=== PATIENT | female | born 1965 | race African-American/Black ===

== ENCOUNTER 2016-04-25 14:25 | Emergency (ER) | payer OTHER ==
[~2016-04-25] VITALS: Ht 157.5 cm; Wt 95.3 kg
[~2016-04-25 14:25] MED LIST: CLIN-44 PO
[2016-04-25 14:49] VITALS: BP 157/73
--- NOTE | 2016-04-25 15:33 | PHYS DOC ---
Past Medical History Past Medical History: Hypertension Past Surgical History: , Other Additional Past Surgical Histo: neck, left lumpectomy Smoking: Less than 1pk/day Alcohol Use: Rarely Drug Use: None Adult General Chief Complaint Chief Complaint: LOWER EXT PAIN HPI HPI Patient is a 50 year old female who presents with left knee pain after falling through a hole in a deck 1 month ago. She did not fall completely through the deck to the ground. Her leg went through the hole to the level of the knee. She has been ambulatory since the injury. She has taken ibuprofen at home for pain without relief. Review of Systems Review of Systems Constitutional: Denies fever or chills. [] Musculoskeletal: Denies back pain. Reports left knee pain. Integument: Denies rash or skin lesions. Reports left knee ecchymosis. Neurologic: Denies headache, focal weakness or sensory changes. [] Allergies Allergies Allergies Coded Allergies Type Severity Reaction Last Updated Verified codeine Allergy Intermediate 09/29/15 Yes Physical Exam Physical Exam Constitutional: Well developed, well nourished, no acute distress, non-toxic appearance. [] HENT: Normocephalic, atraumatic, oropharynx moist. [] Eyes: PERRLA, EOMI, conjunctiva normal, no discharge. [] Skin: Warm, dry, no erythema, no rash. There is a hematoma just distal to the left knee on the medial side. Extremities: Left medial knee tenderness without patellar tenderness, ROM intact , minimal edema. 2+ pedal pulses. Less than 2 second capillary refill in the toes. Light touch sensation intact distally. Neurologic: Alert and oriented X 3, normal motor function, normal sensory function, no focal deficits noted. [] Psychologic: Affect normal, judgement normal, mood normal. [] Current Patient Data Vital Signs Vital Signs Date Time Temp Pulse Resp B/P Pulse Ox O2 Delivery O2 Flow Rate FiO2 04/25/16 14:49 98.0 67 16 96 Room Air 98.0 EKG EKG [] Radiology/Procedures Radiology/Procedures REASON: fall through hole in deck 1 month ago PROCEDURE: KNEE LEFT 3V Indication: Fall through deck 1 month ago, twisting injury. Technique: 3 views of the left knee are submitted for review. No comparison is available. Findings: There is no fracture or dislocation. There is minimal medial and patellofemoral compartment spurring. There is no joint space narrowing. There is no joint effusion. Impression: Mild osteoarthritis in the medial and patellofemoral compartments. Course & Med Decision Making Course & Med Decision Making Pertinent Labs and Imaging studies reviewed. (See chart for details) The patient was discharged home with an Luis Fernando wrap. She is given a prescription for Ultram. She is given contact information for orthopedics for follow-up. Return precautions were discussed per chief verbalizes understanding and agrees with plan. Dragon Disclaimer Dragon Disclaimer This electronic medical record was generated, in whole or in part, using a voice recognition dictation system. Departure Departure Impression: Primary Impression: Knee pain, left Disposition: HOME, SELF-CARE Condition: STABLE Referrals: MARTHA ROMERO MD Patient Instructions: Knee Pain, [id number], RICE - Routine Care for Injuries , [id number] Additional Instructions: Your xray did not show any broken bones or dislocations. Please wear the provided Luis Fernando wrap to help with swelling and pain. Please take the prescribed pain medication as directed. Do not drive or operate heavy machinery while taking pain medication. Please follow up with the orthopedic doctor listed below if your pain continues. Return to the emergency department if you have any new or concerning symptoms. Scripts Tramadol Hcl (Ultram)50 Mg [id number] Mg PO Q6H PRN PAIN #20 TAB Prov:FIONA JACINTO 04/25/16 Problem Qualifiers Primary Impression: Knee pain, left Chronicity: unspecified Qualified Code: M25.562 - Pain in left knee FIONA JACINTO Apr 25, 2016 15:32
--- NOTE | 2016-04-25 15:44 | RAD ---
Indication: Fall through deck 1 month ago, twisting injury. Technique: 3 views of the left knee are submitted for review. No comparison is available. Findings: There is no fracture or dislocation. There is minimal medial and patellofemoral compartment spurring. There is no joint space narrowing. There is no joint effusion. Impression: Mild osteoarthritis in the medial and patellofemoral compartments.
[2016-04-25] MEDS ORDERED: TRAM-29 PO (16:09)
== END 2016-04-25 16:21 | disposition home or self-care (01) ==
LOC: ER 14:25
DX: M25.562 Pain in left knee (principal); I10 Essential (primary) hypertension; F17.210 Nicotine dependence, cigarettes, uncomplicated; Z88.5 Allergy status to narcotic agent
CPT/HCPCS: 73562; 99284

== ENCOUNTER → 2016-09-02 | Outpatient (CLI) | payer OTHER ==
[~2016-09-02] MED LIST changes: -CLIN-44 PO; +CLIN150C14 PO; +TRAM-48 PO
--- NOTE | 2016-09-02 16:15 | RAD ---
INDICATION: Pelvic pain/tenderness COMPARISON: None. TECHNIQUE: Grayscale and color ultrasound images uterus and adnexa. Transabdominal and transvaginal images obtained. FINDINGS: Uterus: 12.3 x 5.8 x 5.7 cm. Endometrial Stripe: 6 mm. The right ovary is not seen. There is a large complex cystic structure within the left adnexa with some color flow within the septations. This measures approximately 86 x 49 x 43 mm. IMPRESSION: 1. Complex cystic mass within the left adnexa with vascular flow seen to the septations. There is also free fluid identified. Differential considerations include a cystic neoplasm of the left ovary such as cystadenoma or cystadenocarcinoma although a complex fluid collection is also within the differential. Given the size of this lesion further workup is warranted. This could include [employer] evaluation or pelvic MRI with and without contrast.
--- NOTE | 2016-09-05 14:03 | RAD ---
DATE: 09/02/2016 EXAM: DIGITAL SCREEN BILAT W/CAD HISTORY: Routine screening COMPARISON: None available This study was interpreted with the benefit of Computerized Aided Detection (CAD). The breast parenchyma is heterogeneously dense, which could reduce sensitivity of mammography. Breast parenchyma level C. FINDINGS: The breast tissues are heterogeneously dense in a somewhat nodular pattern. There are multiple benign-appearing lymph node type densities projected over the axillary regions bilaterally. A smooth oval-shaped nodule with a hilar lucency projected over the posterolateral aspect of left breast is most compatible with a benign intramammary lymph node. No other unusual breast densities are seen. Benign type calcifications are present on the right. No suspicious microcalcifications are evident. IMPRESSION: There is no mammographic evidence of malignancy in either breast. BI-RADS CATEGORY: 2 BENIGN FINDING(S) RECOMMENDED FOLLOW-UP: 12M 12 MONTH FOLLOW-UP PQRS compliance statement: Patient information was entered into a reminder system with a target due date for the next mammogram. Mammography is a sensitive method for finding small breast cancers, but it does not detect them all and is not a substitute for careful clinical examination. A negative mammogram does not negate a clinically suspicious finding and should not result in delay in biopsying a clinically suspicious abnormality. "Our facility is accredited by the [employer] Mammography Program."
== END | disposition home or self-care (01) ==
LOC: US 08:00
PROVIDERS: ATTEND Nurse Practitioner Family
DX: Z12.31 Encounter for screening mammogram for malignant neoplasm of breast (principal); R10.2 Pelvic and perineal pain
CPT/HCPCS: 76830; 76856; G0202; 77067

== ENCOUNTER 2016-09-22 14:33 | Emergency (ER) | payer OTHER ==
[~2016-09-22] VITALS: Ht 157.5 cm; Wt 95.3 kg
[2016-09-22 15:00] VITALS: BP 156/88
[2016-09-22] MEDS ORDERED: ONDANSETRON ODT 4 MG TAB.RAPDIS. PO ONE (16:15)
--- NOTE | 2016-09-22 16:21 | PHYS DOC ---
Past Medical History Past Medical History: Hypertension Past Surgical History: , Other Additional Past Surgical Histo: neck, left lumpectomy Alcohol Use: Rarely Drug Use: None Adult General Chief Complaint Chief Complaint: FEVER HPI HPI Patient is a 50 year old female presents to emergency department stating that she's been having vomiting and diarrhea for the last week. Patient states that she vomited 3 times today with no blood in the emesis. She'll states she had 3 diarrhea stools with no blood in the stools. She states that it was mainly liquid. Patient states that she is also been having some vaginal discharge. She states that she was treated for Trichomonas last week and she does not think that that was effective. Patient states that she still is sexually active. She denies being sexually active with the partner prior to the positive Trichomonas. Patient also states she's been running a fever. Her temperature here in the emergency department was 99.3. Review of Systems Review of Systems Constitutional: Subjective fever Eyes: Denies change in visual acuity, redness, or eye pain [] HENT: Denies nasal congestion or sore throat [] Respiratory: Denies cough or shortness of breath [] Cardiovascular: No additional information not addressed in HPI [] GI: Denies abdominal pain, complain nausea, vomiting and diarrhea. : Denies dysuria or hematuria [] Musculoskeletal: Denies back pain or joint pain [] Integument: Denies rash or skin lesions [] Neurologic: Denies headache, focal weakness or sensory changes [] Endocrine: Denies polyuria or polydipsia [] Current Medications Current Medications Current Medications Medications (Trade) Dose Ordered Sig/[facility] Start Time Stop Time Status Last Admin Dose Admin Ondansetron HCl (Zofran Odt) 4 mg 1X ONCE 09/22/16 16:15 09/22/16 16:16 DC 09/22/16 16:14 4 MG Allergies Allergies Allergies Coded Allergies Type Severity Reaction Last Updated Verified codeine Allergy Intermediate 09/29/15 Yes Physical Exam Physical Exam Constitutional: Well developed, well nourished, no acute distress, non-toxic appearance. [] HENT: Normocephalic, atraumatic, bilateral external ears normal, oropharynx moist, no oral exudates, nose normal. [] Eyes: PERRLA, EOMI, conjunctiva normal, no discharge. [] Neck: Normal range of motion, no tenderness, supple, no stridor. [] Cardiovascular:Heart rate regular rhythm, no murmur [] Lungs & Thorax: Bilateral breath sounds clear to auscultation [] Abdomen: Bowel sounds hypoactive, soft, no tenderness, no masses, no pulsatile masses. [] Skin: Warm, dry, no erythema, no rash. [] Back: No tenderness Extremities: No tenderness, no cyanosis, no clubbing, ROM intact, no edema. [] Neurologic: Alert and oriented X 3, normal motor function, normal sensory function, no focal deficits noted. [] Psychologic: Affect normal, judgement normal, mood normal. [] Vaginal exam completed with WILDA Fallon at bedside. Speculum exam with patient noted to have white to cover vaginal discharge. Patient states she had finished her menstrual cycle on Monday. Manual exam with no CMT noted, no adnexal tenderness noted. Current Patient Data Vital Signs Vital Signs Date Time Temp Pulse Resp B/P (MAP) Pulse Ox O2 Delivery O2 Flow Rate FiO2 09/22/16 15:00 99.1 78 18 98 Room Air 99.1 Lab Values Laboratory Tests Test 09/22/16 16:30 Urine Color Yellow Urine Clarity Clear Urine pH 6.0 Urine Specific [place] >=1.030 Urine Protein 100 mg/dL (NEG-TRACE) Urine Glucose (UA) Negative mg/dL (NEG) Urine Ketones (Stick) Negative mg/dL (NEG) Urine Blood Negative (NEG) Urine Nitrite Negative (NEG) Urine Bilirubin Negative (NEG) Urine Urobilinogen Dipstick 1.0 mg/dL (0.2 mg/dL) Urine Leukocyte Esterase Negative (NEG) Urine RBC 0 /HPF (0-2) Urine WBC Occ /HPF (0-4) Urine Squamous Epithelial Cells Occ /LPF Urine Bacteria 0 /HPF (0-FEW) Urine Mucus Mod /LPF Microbiology 09/22/16 Wet Prep - Final, Complete EKG EKG [] Radiology/Procedures Radiology/Procedures [] Course & Med Decision Making Course & Med Decision Making Pertinent Labs and Imaging studies reviewed. (See chart for details) Wet prep was positive for bacterial vaginosis, urinalysis was negative. Patient had been provided with Zofran here in the emergency department as she stated that she was nauseated. Patient with no nausea or vomiting, or diarrhea here in the emergency department. Patient will be discharged home with recommendations for Zofran as needed for nausea vomiting. Recommended Imodium [id number] for diarrhea. Provided patient with information she needs to drink plenty of fluids to stay hydrated. Patient agrees with discharge instructions treatment regimens and follow-up recommendations. Signs and symptoms to return back to emergency department been provided. Patient will be discharged home with recommendations to follow-up with primary care physician in the next 3-5 days. Patient's questions were all answered at the bedside. [] Dragon Disclaimer Dragon Disclaimer This electronic medical record was generated, in whole or in part, using a voice recognition dictation system. Departure Departure Impression: Primary Impression: Bacterial vaginosis Additional Impression: Vomiting and diarrhea Disposition: HOME, SELF-CARE Condition: STABLE Referrals: UNKNOWN PCP NAME (PCP) Patient Instructions: Bacterial Vaginosis, [id number], Diarrhea, [id number] , Diet for Diarrhea, Adult, Nausea and Vomiting, [id number] Additional Instructions: Activity as tolerated. Clear liquid diet for the next 24 hours. Drink plenty of fluids to help keep herself hydrated. Avoid caffeine or carbonated beverages. Medication as prescribed. Follow-up to primary care physician in the next 5-7 days. Return back to emergency prior signs and symptoms of become worse. Scripts Ondansetron (ZOFRAN ODT) 4 Mg Tab.rapdis 1 TAB SL Q8HRS, #10 TAB Prov: ASHLIE JERNIGAN APRN 09/22/16 Metronidazole (FLAGYL) 500 Mg Tablet 1 TAB PO BID, #14 TAB Prov: ASHLIE JERNIGAN APRN 09/22/16 Problem Qualifiers ASHLIE JERNIGAN APRN Sep 22, 2016 16:21
[2016-09-22 16:46] LABS: BILIRUBIN,URINE NEGATIVE (NEG); GLUCOSE,URINE NEGATIVE (NEG); NITRITE,URINE NEGATIVE (NEG); PROTEIN,URINE 100 mg/dL (NEG-TRACE)
[2016-09-22 16:55] LABS: BACTERIA,URINE 0 /HPF (0-FEW); RBC,URINE 0 /HPF (0-2); SQUAMOUS EPITHELIAL CELL,UR OCC /LPF; WBC,URINE OCC /HPF (0-4)
[2016-09-22] MEDS ORDERED: ONDA4TAB10 SL (17:01)
[2016-09-22] MEDS ORDERED: METR500T PO (17:01)
== END 2016-09-22 17:15 | disposition home or self-care (01) ==
LOC: ER 14:33
DX: N76.0 Acute vaginitis (principal); R11.2 Nausea with vomiting, unspecified; R19.7 Diarrhea, unspecified; I10 Essential (primary) hypertension; Z88.5 Allergy status to narcotic agent; Z98.890 Other specified postprocedural states
CPT/HCPCS: 81001; 87491; 87591; 99284; Q0111; Q0162

== ENCOUNTER → 2016-10-11 | Outpatient (CLI) | payer OTHER ==
[2016-09-22 15:00] VITALS: BP 156/88
[~2016-10-11] MED LIST changes: +METR500T PO; +ONDA4TAB10 SL
--- NOTE | 2016-10-11 14:30 | RAD ---
Exam performed: Pelvic ultrasound. History: Excessive menstruation. Date of service: 10/11/16. Comparison: None available Technique: Transabdominal and transvaginal. Findings: The uterus measures 14.0 x 6.4 x 5.6 cm. The endometrial stripe measures 6.8 mm. No focal lesions are seen. Neither of the 2 ovaries are well seen. There is a septated cystic structure in the left adnexa with flow within the septations. This measures to the order of approximately 7 cm. In addition there is also a cystic septated structure in the right adnexa measuring approximately 8 cm which is seen only via transabdominal scanning. No free fluid. Impression: Normal uterus. Cystic septated structures in both adnexa without definite visualization of the ovaries. Diagnostic considerations would include Hydrosalpinx or ovarian cysts. Short-term interval follow-up ultrasound in approximately 8-12 weeks may be of additional benefit to follow these abnormalities. These persist, consider evaluation with MRI pelvis with contrast
== END | disposition home or self-care (01) ==
LOC: US 09:33
PROVIDERS: ATTEND Obstetrics & Gynecology
DX: N92.0 Excessive and frequent menstruation with regular cycle (principal); N94.6 Dysmenorrhea, unspecified; D25.9 Leiomyoma of uterus, unspecified
CPT/HCPCS: 76830; 76856

== ENCOUNTER → 2016-11-25 | Outpatient (CLI) | payer OTHER ==
[~2016-11-25] MED LIST changes: +HYDR12.58 PO
[2016-11-25 13:49] LABS: BASO # 0.1 x10^3/uL (0.0-0.2); BASO % 1 % (0-3); EOS % 2 % (0-3); HEMATOCRIT 36.1 % (36.0-47.0); HEMOGLOBIN 12.3 g/dL (12.0-15.5); LYMPH # 2.6 x10^3/uL (1.0-4.8); LYMPH % 34 % (24-48); MEAN CORPUSCULAR HEMOGLOBIN 32 pg (25-35); MEAN CORPUSCULAR HGB CONC 34 g/dL (31-37); MEAN CORPUSCULAR VOLUME 93 fL (79-100); MONO % 7 % (0-9); NEUT % 56 % (31-73); PLATELET COUNT 329 x10^3/uL (140-400); RED BLOOD COUNT 3.89 x10^6/uL (3.50-5.40); WHITE BLOOD COUNT 7.6 x10^3/uL (4.0-11.0)
== END | disposition home or self-care (01) ==
LOC: SURGPAT 13:13
PROVIDERS: ATTEND Obstetrics & Gynecology
DX: Z01.818 Encounter for other preprocedural examination (principal); Z90.710 Acquired absence of both cervix and uterus
CPT/HCPCS: 36415; 85025

== ENCOUNTER 2016-12-01 06:33 | Inpatient (IN) | payer OTHER ==
[~2016-12-01] VITALS: Ht 157.5 cm; Wt 97.5 kg
[~2016-12-01 06:33] MED LIST changes: +SURGICEL HEMOSTAT 2X3 EACH. ONE; +ceFAZolin SODIUM 3 GM in IV DEXTROSE 5% 100 ML IV PRN
[2016-12-01 06:58] LABS: NEG OBC UR NEG; POS OBC UR POS
[2016-12-01] MEDS ORDERED: IV RINGERS,LACTATED 1000ML 1,000 ML IV SCH (07:00)
[2016-12-01] MEDS ORDERED: HYDROmorphone 2 MG/ML VIAL IV PRN (07:00)
[2016-12-01] MEDS ORDERED: PROCHLORPERAZINE 10 MG/2 ML VIAL. IV PRN ×3 (07:00→15:00)
[2016-12-01] MEDS ORDERED: MORPHINE SULFATE 2 MG/ML DISP.SYRIN. IV PRN (07:00)
[2016-12-01] MEDS ORDERED: fentaNYL PF VIAL 100 MCG/2 ML VIAL IV PRN ×2 (07:00)
[2016-12-01] MEDS ORDERED: LIDOCAINE 1% PF 2 ML VIAL. ID PRN (07:00)
[2016-12-01] MEDS ORDERED: ONDANSETRON PF 4 MG/2 ML VIAL. IV PRN ×3 (07:00→15:00)
[2016-12-01] MEDS ORDERED: DESFLURANE 61 TO 120 MINUTES IH ONE ×2 (07:25→13:31)
[2016-12-01] MEDS ORDERED: KETOROLAC 30 MG/ML INJ FOR OR. INJ ONE (07:26)
[2016-12-01] MEDS ORDERED: ROCURONIUM 100 MG/10 ML VIAL. ONE ×2 (07:26→13:32)
[2016-12-01] MEDS ORDERED: LIDOCAINE 2% PF Vial for OR 5 ML VIAL. ONE ×2 (07:26→13:32)
[2016-12-01] MEDS ORDERED: GLYCOPYRROLATE 1 MG/5 ML VIAL. ONE ×2 (07:26→13:33)
[2016-12-01] MEDS ORDERED: NEOSTIGMINE METHYLSULFATE 5 MG/5 ML SYRINGE. ONE ×2 (07:26→13:33)
[2016-12-01] MEDS ORDERED: DEXAMETHASONE SOD PHOS 20 MG/5 ML VIAL. ONE ×2 (07:26→13:32)
[2016-12-01] MEDS ORDERED: PROPOFOL 20 ML IV ONE ×2 (07:26→13:32)
[2016-12-01] MEDS ORDERED: ONDANSETRON PF 4 MG/2 ML VIAL. ONE ×2 (07:26→13:32)
[2016-12-01] MEDS ORDERED: fentaNYL PF VIAL 100 MCG/2 ML VIAL ONE ×4 (07:26→13:32)
[2016-12-01] MEDS ORDERED: MIDAZOLAM HCL/PF 2 MG/2 ML VIAL. ONE (07:26)
[2016-12-01] MEDS ORDERED: PHENYLEPHRINE in 0.9% NACL PF 1 MG/10 ML DISP.SYRIN. IV ONE ×2 (08:32→14:39)
--- NOTE | 2016-12-01 09:51 | PDOC ---
BRIEF OPERATIVE NOTE Pre-Op Diagnosis 1. AUB 2. Fibroids Post-Op Diagnosis SAme + Bilateral Hydrosalpinx Procedure Performed ADONIS & BSO Surgeon Dr. Alexandria Fallon Anesthesia Type: General Blood Loss 500 ml Specimens Obtained uterus, cervix, eleanor fallopian tubes and ovaries Findings enlarged uterus with eleanor. hydrosalpinx and abd wall/pelvic sidewall adhesions Complications none ELIZA CHAND Jr, MD Dec 01, 2016 09:51
[2016-12-01] MEDS ORDERED: SIMETHICONE 80 MG TAB.CHEW PO PRN ×2 (10:00→15:00)
[2016-12-01] MEDS ORDERED: CALCIUM CARBONATE 500 MG TAB.CHEW PO PRN ×2 (10:00→15:00)
[2016-12-01] MEDS ORDERED: 0.9 % SODIUM CHLORIDE 10 ML DISP.SYRIN. IV PRN ×2 (10:00→15:00)
[2016-12-01] MEDS ORDERED: diphenhydrAMINE HCL 25 MG CAPSULE PO PRN ×2 (10:00→15:00)
[2016-12-01] MEDS ORDERED: DEXTROSE 50% 25 GM / 50ML DISP.SYRIN. IV PRN ×2 (10:00→15:00)
[2016-12-01] MEDS ORDERED: ZOLPIDEM 5 MG TABLET. PO PRN ×2 (10:00→15:00)
[2016-12-01] MEDS ORDERED: diphenhydrAMINE 50 MG/ML VIAL IV PRN ×2 (10:00→15:00)
--- NOTE | 2016-12-01 10:20 | OP ---
DATE OF SURGERY: PREOPERATIVE DIAGNOSES: 1. Abnormal uterine bleeding. 2. Fibroids. POSTOPERATIVE DIAGNOSES: 1. Abnormal uterine bleeding. 2. Fibroids. 3. Bilateral hydrosalpinx. PROCEDURE: TAHBSO. SURGEON: Eliza Ibrahim MD OCEAN EXPORT AGENT: Leeanne. ANESTHESIA: GETA. ESTIMATED BLOOD LOSS: 500 mL. COMPLICATIONS: None. FINDINGS: Enlarged uterus, bilateral hydrosalpinx, abdominal wall and pelvic sidewall adhesions. SUMMARY: A 50-year-old female with abnormal uterine bleeding, fibroid by pelvic sonogram, required hysterectomy. The patient was counseled on risks, benefits and expectations of TAHBSO and voiced clear understanding to proceed. DESCRIPTION OF PROCEDURE: The patient was taken to surgery suite and placed in dorsal lithotomy position. She was then placed in dorsal supine position, in which she was prepped with ChloraPrep and draped in sterile fashion. After adequate anesthesia, a Pfannenstiel skin incision was made with scalpel down to and through the fascia. Fascia was extended laterally using Bovie cautery. The superior edge of the fascia was grasped with two Ugo clamps and dissected free of the abdominal rectus muscles using blunt dissection along with Bovie cautery. The same process took place inferiorly. Peritoneum was grasped with 2 hemostats, entered sharply with Metzenbaum scissors. This incision was extended superiorly as well as inferiorly. The uterus was palpated, enlarged. There were bilateral hydrosalpinx, each measuring about 8 cm in size. The multiple abdominal wall and pelvic sidewall adhesions were then dissected with Metzenbaum scissors. After careful dissection, the left hydrosalpinx was decompressed using 60 mL syringe with spinal needle. The left round ligament was grasped and suture ligated with 2-0 Vicryl suture on the proximal and distal end. The mid section of the round ligament was dissected with the Bovie cautery. The same process took place in the right round ligament. The right hydrosalpinx was then partially drained, and the right infundibulopelvic ligament was isolated, clamped with two curved Renata clamps, cut and suture tied with 2-0 Vicryl suture. The right utero-ovarian pedicle was then clamped, cut, suture tied. The right utero-ovarian pedicle was removed, which included the ovary and fallopian tube. Same process took place with left adnexa. The cardinal ligaments and uterine artery were clamped bilaterally, cut, and suture ligated. Two curved Renata clamps were then placed just adjacent to the cervix, which those pedicles were cut and suture ligated with 0 Vicryl suture, which was at the level of the parametrial tissue. Two curved Renata clamps were used to place just adjacent to the cervix in which the Cristine scissors were utilized to help excise the cervix from the vaginal cuff. The cervix and uterus were then removed. The vaginal cuff was reapproximated using 2-0 Vicryl suture in a iliaoi-gw-lzguy manner. Warm irrigation was utilized to verify good hemostasis. The ureters were palpated bilaterally and seen functioning properly. The Jun ring retractor and bowel packing were then removed. The peritoneum was reapproximated using 1-0 Vicryl suture in a running fashion. The fascia was reapproximated using 0 Vicryl suture in a running fashion. Skin was reapproximated using 4-0 Vicryl suture in subcuticular manner. Prevena wound VAC was then placed. The patient tolerated the procedure well and was taken to recovery room in stable condition. Sponge and needle count correct x 2. ELIZA IBRAHIM MD DR: LUDIVINA/cam JOB#: [id number] / [id number]
[2016-12-01] MEDS: GABAPENTIN 300 MG CAPSULE. PO SCH ×2 (14:00→21:36)
--- NOTE | 2016-12-01 14:59 | PDOC ---
BRIEF OPERATIVE NOTE Pre-Op Diagnosis Hematuria s/p ADONIS & BSO Post-Op Diagnosis SAme Procedure Performed Dx Cystoscopy Surgeon Dr. Ibrahim Anesthesia Type: General Blood Loss none Specimens Obtained none Findings superficial abrasion of bladder trigone. UVJ functioning normally. No evidence of cystotomy or injury from surgery. Small portion of cervix on vaginal exam present. Complications none ELIZA IBRAHIM Jr, MD Dec 01, 2016 14:59
[2016-12-01] MEDS ORDERED: oxyCODONE/APAP 5/325 1 TAB TABLET PO PRN (15:00)
[2016-12-01] MEDS ORDERED: KETOROLAC 30 MG/ML INJ. IV PRN (15:00)
--- NOTE | 2016-12-01 15:12 | OP ---
DATE OF SURGERY: PREOPERATIVE DIAGNOSES: Hematuria, status post total abdominal hysterectomy bilateral salpingo-oophorectomy. POSTOPERATIVE DIAGNOSES: Hematuria, status post total abdominal hysterectomy bilateral salpingo-oophorectomy. PROCEDURE: Diagnostic cystoscopy. SURGEON: Eliza Chand MD. ANESTHESIA: GETA. ESTIMATED BLOOD LOSS: None. FINDINGS: Superficial abrasion of the bladder trigone, most likely from the Moctezuma catheter placement. UVJ functioning normally. No evidence of cystotomy or injury from previous surgery. Small portion of the cervix on vaginal exam was present. COMPLICATIONS: None. SUMMARY: A 50-year-old who had hematuria status post TAHBSO. Today, she continued to have jason hematuria; therefore, she was counseled on operative cystoscopy for possible bladder injury repair and possible open laparotomy. She was counseled on the risks, benefits and expectations and voiced a clear understanding to proceed. DESCRIPTION OF PROCEDURE: The patient was taken to surgery suite and placed in dorsal lithotomy position. She was prepped with Betadine solution and draped in sterile fashion. Cystoscopy was performed which revealed a normal bladder intraepithelium with the exception of a superficial abrasion near the bladder trigone. There was no evidence of cystotomy. The ureterovesical junction is functioning normally bilaterally. Cystoscopy was performed with 30 degree as well a 70-degree scope. The cystoscope was then removed. There was evidence of a small portion of the cervix that was present. Therefore, previous surgery was supracervical hysterectomy that was mostly performed due to some adhesions from pelvic sidewall and the vaginal cuff area. The patient tolerated the procedure well and was taken to recovery room in stable condition. Sponge and needle count correct x 3. ELIZA CHAND MD DR: LUDIVINA/cam JOB#: [id number] / [id number]
[2016-12-01 16:18] VITALS: BP 124/69
[2016-12-01 16:34] VITALS: BP 123/68
[2016-12-01 17:25] VITALS: BP 124/66
[2016-12-01 17:41] VITALS: BP 120/62
[2016-12-01] MEDS: KETOROLAC 30 MG/ML INJ. IV PRN (19:32)
[2016-12-01 20:00] VITALS: BP 140/82
[2016-12-01] MEDS: oxyCODONE/APAP 5/325 1 TAB TABLET PO PRN (21:35)
[2016-12-01] MEDS ORDERED: GABAPENTIN 300 MG CAPSULE. PO SCH (22:00)
[2016-12-02 01:14] VITALS: BP 114/47
[2016-12-02 05:00] VITALS: BP 105/56
[2016-12-02] MEDS: GABAPENTIN 300 MG CAPSULE. PO SCH ×3 (05:17→20:49)
[2016-12-02] MEDS: KETOROLAC 30 MG/ML INJ. IV PRN (05:17)
[2016-12-02] MEDS: oxyCODONE/APAP 5/325 1 TAB TABLET PO PRN ×4 (05:18→20:49)
[2016-12-02 06:03] LABS: BASO % 0 % (0-3); EOS % 0 % (0-3); HEMATOCRIT 30.6 % (36.0-47.0); HEMOGLOBIN 10.4 g/dL (12.0-15.5); LYMPH # 2.1 x10^3/uL (1.0-4.8); LYMPH % 24 % (24-48); MEAN CORPUSCULAR HEMOGLOBIN 32 pg (25-35); MEAN CORPUSCULAR HGB CONC 34 g/dL (31-37); MEAN CORPUSCULAR VOLUME 94 fL (79-100); MONO % 9 % (0-9); NEUT % 66 % (31-73); PLATELET COUNT 255 x10^3/uL (140-400); RED BLOOD COUNT 3.27 x10^6/uL (3.50-5.40); RED CELL DISTRIBUTION WIDTH 13.8 % (11.5-14.5)
[2016-12-02 10:47] VITALS: BP 113/60
--- NOTE | 2016-12-02 14:01 | PDOC ---
SURGICAL PROGRESS NOTE Subjective Pt. feeling well. Pain controlled. Daniels cath clear urine now. Pt. tolerating regular diet. Vital Signs Vital Signs Date Time Temp Pulse Resp B/P (MAP) Pulse Ox O2 Delivery O2 Flow Rate FiO2 12/02/16 10:47 98.3 84 18 113/60 (77) 98.3 12/02/16 05:18 97 12/02/16 05:00 Room Air 12/01/16 15:50 2 I&O Intake and Output 12/03/16 07:00 Intake Total 560 ml Output Total 900 ml Balance -340 ml Intake Oral 560 ml Output Urine Total 900 ml PATIENT HAS A DANIELS: Yes General: Alert, Oriented X3, Cooperative HEENT: Atraumatic Lungs: Clear to auscultation Heart: Regular rate Abdomen: Normal bowel sounds, Soft, Other (Wound vac in place) Psych/Mental Status: Mental status NL Labs Laboratory Tests Test 12/01/16 06:45 12/02/16 05:20 Urine Test Negative (NEG) White Blood Count 9.0 x10^3/uL (4.0-11.0) Red Blood Count 3.27 x10^6/uL (3.50-5.40) Hemoglobin 10.4 g/dL (12.0-15.5) Hematocrit 30.6 % (36.0-47.0) Mean Corpuscular Volume 94 fL (79-100) Mean Corpuscular Hemoglobin 32 pg (25-35) Mean Corpuscular Hemoglobin Concent 34 g/dL (31-37) Red Cell Distribution Width 13.8 % (11.5-14.5) Platelet Count 255 x10^3/uL (140-400) Neutrophils (%) (Auto) 66 % (31-73) Lymphocytes (%) (Auto) 24 % (24-48) Monocytes (%) (Auto) 9 % (0-9) Eosinophils (%) (Auto) 0 % (0-3) Basophils (%) (Auto) 0 % (0-3) Neutrophils # (Auto) 5.9 x10^3uL (1.8-7.7) Lymphocytes # (Auto) 2.1 x10^3/uL (1.0-4.8) Monocytes # (Auto) 0.8 x10^3/uL (0.0-1.1) Eosinophils # (Auto) 0.0 x10^3/uL (0.0-0.7) Basophils # (Auto) 0.0 x10^3/uL (0.0-0.2) Laboratory Tests Test 12/02/16 05:20 White Blood Count 9.0 x10^3/uL (4.0-11.0) Red Blood Count 3.27 x10^6/uL (3.50-5.40) Hemoglobin 10.4 g/dL (12.0-15.5) Hematocrit 30.6 % (36.0-47.0) Mean Corpuscular Volume 94 fL (79-100) Mean Corpuscular Hemoglobin 32 pg (25-35) Mean Corpuscular Hemoglobin Concent 34 g/dL (31-37) Red Cell Distribution Width 13.8 % (11.5-14.5) Platelet Count 255 x10^3/uL (140-400) Neutrophils (%) (Auto) 66 % (31-73) Lymphocytes (%) (Auto) 24 % (24-48) Monocytes (%) (Auto) 9 % (0-9) Eosinophils (%) (Auto) 0 % (0-3) Basophils (%) (Auto) 0 % (0-3) Neutrophils # (Auto) 5.9 x10^3uL (1.8-7.7) Lymphocytes # (Auto) 2.1 x10^3/uL (1.0-4.8) Monocytes # (Auto) 0.8 x10^3/uL (0.0-1.1) Eosinophils # (Auto) 0.0 x10^3/uL (0.0-0.7) Basophils # (Auto) 0.0 x10^3/uL (0.0-0.2) Assessment/Plan A: POD#1 s/p ADONIS & BSO Cystoscopy P: Cont. post op care. D/c sabas. Problems: ELIZA CHAND Jr, MD Dec 02, 2016 14:01
[2016-12-02 15:37] VITALS: BP 121/66
--- NOTE | 2016-12-02 16:57 | PATHOLOGY ---
PATHOLOGY REPORT * * * * * * * * FINAL DIAGNOSIS: Uterus and detached bilateral fallopian tubes and ovaries, total abdominal hysterectomy with bilateral salpingo-oophorectomy: - Leiomyomas, uterine corpus, intramural and submucosal, multiple, the largest of which is a polypoid submucosal myoma measuring 2.2 cm in greatest dimension. - Mild chronic cervicitis with focal squamous metaplasia. - Early secretory endometrium. - Adenomyosis, uterine corpus, focal. - Uterine serosal adhesions. - Paratubal cysts, side indeterminate. - Mild hydrosalpinx, side indeterminate. - Ovarian capsular adhesions, bilateral. - Hemorrhagic corpus luteum cyst, side indeterminate. COMMENT: There is no evidence of malignancy. (JPM:[email or web address]; 12/02/2016) REPORT ELECTRONICALLY SIGNED BY: Angelito Palmer M.D. DATE/TIME: 12/02/2016 16:57 * * * * * * * * GROSS PATHOLOGY: The specimen is received in formalin labeled "Anahi Lerner, uterus, cervix, bilateral fallopian tubes and ovaries". Received is a 159 g, 11.5 x 5.8 x 5.8 cm uterus with attached cervix. Separately received in the same container are bilateral fallopian tubes and ovaries. The uterine serosa is purple-beth and focally covered by adhesions. The slitlike 0.7 cm cervical os is surrounded and rimmed by pink-beth ectocervical mucosa. The uterus is oriented using the peritoneal reflection. The uterus is bivalved to reveal a pink-beth herringbone endocervical canal measuring 4.5 cm in length. The endometrial cavity is triangular measuring 4.3 cm in length by 2.6 cm in width. The endometrium is pink-beth and hemorrhagic in appearance and measures less than 0.1 cm in thickness. Serial sectioning reveals a pink-beth and trabeculated myometrium measuring 2.8 cm in thickness. Multiple intramural nodules are identified measuring up to 1.0 cm in greatest dimension. The cut surfaces are pale white and whorled. No areas of hemorrhage or necrosis identified. Also present in the lower uterine segment is a submucosal fibroid measuring 2.2 x 1.8 x 0.9 cm. No additional masses or lesions are identified. The first dettached adnexa consists of a fallopian tube measuring 4.5 cm in length by up to 0.8 cm in diameter attached to a 4.4 x 2.5 x 1.5 cm beth and cerebriform ovary. Sectioning through the fallopian tube reveals a purple-beth cut surface and small lumen. There are multiple paratubal cysts measuring between 0.3 cm and 6.0 cm. Sectioning through the ovary reveals a pink-beth cut surface and multiple corpora lutea. The largest cyst contains red-brown viscous fluid and measures 0.1 cm in thickness. No papillary excrescences are identified. No additional masses or lesions are identified. The second deattached and inked adnexa consists of a fallopian tube measuring 4.5 cm in length by up to 0.7 cm in diameter attached to a beth and cystic ovary that measures 3.6 x 3.0 x 2.4 cm. Sectioning through the fallopian tube reveals a dilated lumen containing clear fluid. Multiple paratubal cysts are identified measuring up to 6.3 cm in greatest dimension. Sectioning through the ovary reveals multiple corpora lutea and corpora albicantia as well as a yellow-red cyst measuring up to 1.7 cm in greatest dimension. No papillary excrescences are identified. No additional masses or lesions are identified. The specimen is submitted representatively as follows: A1: Anterior cervix A2: Posterior cervix A3: Anterior endomyometrium A4: Posterior endomyometrium A5: Serosal adhesions A6: Nodules A7: Submucosal fibroid A8: First described fallopian tube and ovary A9: First described largest cyst A10: Second described fallopian tube and cyst A11-A13: Second described cystic ovary (SDY; 12/01/2016) INITIAL CPT CODE(S): A; 67690 Professional services performed by [facility] at [address] [address] Technical services performed by [facility] at [address] [place] [address], [address] [address]. SPECIMEN(S) RECEIVED: A.Uterus, cervix, bilateral fallopian tubes and ovaries CLINICAL HISTORY: Abnormal uterine bleeding, fibroids PATIENT: ANAHI LERNER /AGE: 11 1965 (Age: 50) PATIENT #: [id number] ALT CASE #: SPECIMEN COLLECTION DATE: 12/01/2016 SPECIMEN RECEIVED DATE: 12/01/2016 [facility] [place] [address] - PHONE: [phone] * * * END OF REPORT * * *
[2016-12-02] MEDS ORDERED: MAGNESIUM HYDROXIDE 2,400 MG/30 ML ORAL.SUSP. PO PRN (20:30)
[2016-12-02] MEDS: DOCUSATE SODIUM 100 MG CAPSULE. PO SCH (20:48)
[2016-12-02 22:41] VITALS: BP 122/73
[2016-12-03] MEDS: GABAPENTIN 300 MG CAPSULE. PO SCH ×2 (05:00→12:18)
[2016-12-03] MEDS: oxyCODONE/APAP 5/325 1 TAB TABLET PO PRN ×3 (05:00→19:34)
[2016-12-03 05:08] VITALS: BP 146/86
[2016-12-03 05:48] LABS: BASO % 0 % (0-3); EOS % 2 % (0-3); HEMATOCRIT 30.1 % (36.0-47.0); HEMOGLOBIN 10.4 g/dL (12.0-15.5); LYMPH # 2.7 x10^3/uL (1.0-4.8); LYMPH % 32 % (24-48); MEAN CORPUSCULAR HEMOGLOBIN 32 pg (25-35); MEAN CORPUSCULAR HGB CONC 34 g/dL (31-37); MEAN CORPUSCULAR VOLUME 92 fL (79-100); MONO % 8 % (0-9); NEUT % 59 % (31-73); PLATELET COUNT 240 x10^3/uL (140-400); RED BLOOD COUNT 3.26 x10^6/uL (3.50-5.40); WHITE BLOOD COUNT 8.4 x10^3/uL (4.0-11.0)
[2016-12-03 11:15] VITALS: BP 136/82
[2016-12-03] MEDS: DOCUSATE SODIUM 100 MG CAPSULE. PO SCH (12:18)
--- NOTE | 2016-12-03 15:50 | PDOC ---
SURGICAL PROGRESS NOTE Subjective Pt. feeling better. Pain controlled. Pt. ambulating, voiding and tolerating regular diet. Vital Signs Vital Signs Date Time Temp Pulse Resp B/P (MAP) Pulse Ox O2 Delivery O2 Flow Rate FiO2 12/03/16 11:15 98.3 78 18 136/82 (100) 98 Room Air 98.3 I&O Intake and Output 12/04/16 07:00 # Voids 1 # Bowel Movements 1 PATIENT HAS A DANIELS: No General: Alert, Oriented X3, Cooperative HEENT: Atraumatic Lungs: Clear to auscultation Heart: Regular rate Abdomen: Normal bowel sounds, Soft, No tenderness, No masses Psych/Mental Status: Mental status NL Labs Laboratory Tests Test 12/02/16 05:20 12/03/16 05:10 White Blood Count 9.0 x10^3/uL (4.0-11.0) 8.4 x10^3/uL (4.0-11.0) Red Blood Count 3.27 x10^6/uL (3.50-5.40) 3.26 x10^6/uL (3.50-5.40) Hemoglobin 10.4 g/dL (12.0-15.5) 10.4 g/dL (12.0-15.5) Hematocrit 30.6 % (36.0-47.0) 30.1 % (36.0-47.0) Mean Corpuscular Volume 94 fL (79-100) 92 fL (79-100) Mean Corpuscular Hemoglobin 32 pg (25-35) 32 pg (25-35) Mean Corpuscular Hemoglobin Concent 34 g/dL (31-37) 34 g/dL (31-37) Red Cell Distribution Width 13.8 % (11.5-14.5) 14.0 % (11.5-14.5) Platelet Count 255 x10^3/uL (140-400) 240 x10^3/uL (140-400) Neutrophils (%) (Auto) 66 % (31-73) 59 % (31-73) Lymphocytes (%) (Auto) 24 % (24-48) 32 % (24-48) Monocytes (%) (Auto) 9 % (0-9) 8 % (0-9) Eosinophils (%) (Auto) 0 % (0-3) 2 % (0-3) Basophils (%) (Auto) 0 % (0-3) 0 % (0-3) Neutrophils # (Auto) 5.9 x10^3uL (1.8-7.7) 4.9 x10^3uL (1.8-7.7) Lymphocytes # (Auto) 2.1 x10^3/uL (1.0-4.8) 2.7 x10^3/uL (1.0-4.8) Monocytes # (Auto) 0.8 x10^3/uL (0.0-1.1) 0.6 x10^3/uL (0.0-1.1) Eosinophils # (Auto) 0.0 x10^3/uL (0.0-0.7) 0.2 x10^3/uL (0.0-0.7) Basophils # (Auto) 0.0 x10^3/uL (0.0-0.2) 0.0 x10^3/uL (0.0-0.2) Laboratory Tests Test 12/03/16 05:10 White Blood Count 8.4 x10^3/uL (4.0-11.0) Red Blood Count 3.26 x10^6/uL (3.50-5.40) Hemoglobin 10.4 g/dL (12.0-15.5) Hematocrit 30.1 % (36.0-47.0) Mean Corpuscular Volume 92 fL (79-100) Mean Corpuscular Hemoglobin 32 pg (25-35) Mean Corpuscular Hemoglobin Concent 34 g/dL (31-37) Red Cell Distribution Width 14.0 % (11.5-14.5) Platelet Count 240 x10^3/uL (140-400) Neutrophils (%) (Auto) 59 % (31-73) Lymphocytes (%) (Auto) 32 % (24-48) Monocytes (%) (Auto) 8 % (0-9) Eosinophils (%) (Auto) 2 % (0-3) Basophils (%) (Auto) 0 % (0-3) Neutrophils # (Auto) 4.9 x10^3uL (1.8-7.7) Lymphocytes # (Auto) 2.7 x10^3/uL (1.0-4.8) Monocytes # (Auto) 0.6 x10^3/uL (0.0-1.1) Eosinophils # (Auto) 0.2 x10^3/uL (0.0-0.7) Basophils # (Auto) 0.0 x10^3/uL (0.0-0.2) Assessment/Plan A: POD#2 s/p ADONIS & BSO Cystoscopy P: continue post op care. Problems: ELIZA CHAND Jr, MD Dec 03, 2016 15:49
[2016-12-03 16:26] VITALS: BP 130/59
[2016-12-03 21:15] VITALS: BP 144/87
[2016-12-04] MEDS: DOCUSATE SODIUM 100 MG CAPSULE. PO SCH (01:56)
[2016-12-04] MEDS: oxyCODONE/APAP 5/325 1 TAB TABLET PO PRN ×2 (01:57→06:38)
[2016-12-04 06:24] VITALS: BP 149/86
[2016-12-04] MEDS: GABAPENTIN 300 MG CAPSULE. PO SCH (06:38)
--- NOTE | 2016-12-04 10:17 | PDOC ---
SURGICAL PROGRESS NOTE Subjective Pt. feeling well. No complaints. Vital Signs Vital Signs Date Time Temp Pulse Resp B/P (MAP) Pulse Ox O2 Delivery O2 Flow Rate FiO2 12/04/16 06:38 18 Room Air 12/04/16 06:24 98.1 65 149/86 (107) 99 98.1 I&O Intake and Output 12/05/16 06:59 Output Total 1 ml Balance -1 ml Stool Total 1 ml PATIENT HAS A DANIELS: No General: Alert, Oriented X3, Cooperative HEENT: Atraumatic Lungs: Clear to auscultation Heart: Regular rate Abdomen: Normal bowel sounds, Soft, No tenderness, No masses, Other (wound vac in place) Extremities: No edema Psych/Mental Status: Mental status NL Labs Laboratory Tests Test 12/03/16 05:10 White Blood Count 8.4 x10^3/uL (4.0-11.0) Red Blood Count 3.26 x10^6/uL (3.50-5.40) Hemoglobin 10.4 g/dL (12.0-15.5) Hematocrit 30.1 % (36.0-47.0) Mean Corpuscular Volume 92 fL (79-100) Mean Corpuscular Hemoglobin 32 pg (25-35) Mean Corpuscular Hemoglobin Concent 34 g/dL (31-37) Red Cell Distribution Width 14.0 % (11.5-14.5) Platelet Count 240 x10^3/uL (140-400) Neutrophils (%) (Auto) 59 % (31-73) Lymphocytes (%) (Auto) 32 % (24-48) Monocytes (%) (Auto) 8 % (0-9) Eosinophils (%) (Auto) 2 % (0-3) Basophils (%) (Auto) 0 % (0-3) Neutrophils # (Auto) 4.9 x10^3uL (1.8-7.7) Lymphocytes # (Auto) 2.7 x10^3/uL (1.0-4.8) Monocytes # (Auto) 0.6 x10^3/uL (0.0-1.1) Eosinophils # (Auto) 0.2 x10^3/uL (0.0-0.7) Basophils # (Auto) 0.0 x10^3/uL (0.0-0.2) Assessment/Plan A: POD#3 s/p ADONIS & BSO Cystoscopy P: D/c home. Problems: ELIZA CHAND Jr, MD Dec 04, 2016 10:17
--- NOTE | 2016-12-04 10:18 | DISCH ---
DISCHARGE INSTRUCTIONS Condition on Discharge Condition on Discharge: Stable Activity After Discharge Activity Instructions for Disc: Activity as tolerated Lifting Instructions after Dis: No heavy lifting Driving Instructions after Dis: No driving for 2 weeks Diet after Discharge Diet after Discharge: Regular Contacting the DRChi after DC Call your doctor for: Concerns you may have Follow-Up Follow up with: Dr. Ibrahim on Monday ELIZA IBRAHIM Jr, MD Dec 04, 2016 10:18
[2016-12-04] MEDS ORDERED: OXYC-323 PO (10:19)
[2016-12-04] MEDS ORDERED: IBUP-1060 PO (10:19)
[2016-12-04] MEDS ORDERED: DOCU-109 PO (10:19)
== END 2016-12-04 10:50 | disposition home or self-care (01) | DRG 743 ==
LOC: OPSVCIP 06:33 → 3 NORTH 15:31
PROVIDERS: ADMIT Obstetrics & Gynecology; ATTEND Obstetrics & Gynecology
PROC: 0UT20ZZ Resection of Bilateral Ovaries, Open Approach (ICD-10-PCS; 2016-12-01)
PROC: 0UT70ZZ Resection of Bilateral Fallopian Tubes, Open Approach (ICD-10-PCS; 2016-12-01)
PROC: 0UT90ZZ Resection of Uterus, Open Approach (ICD-10-PCS; 2016-12-01)
PROC: 0TJB8ZZ Inspection of Bladder, Via Natural or Artificial Opening Endoscopic (ICD-10-PCS; principal; 2016-12-01 08:00)
DX: N93.9 Abnormal uterine and vaginal bleeding, unspecified (principal); D25.9 Leiomyoma of uterus, unspecified; K66.0 Peritoneal adhesions (postprocedural) (postinfection); N70.11 Chronic salpingitis; R31.0 Gross hematuria; Z88.8 Allergy status to other drugs, medicaments and biological substances
CPT/HCPCS: 36415; 81025; 85025; 86850; 86900; 86901; 88307; J0690; J1100; J1885; J2250; J2370; J2405; J2704; J2710; J3010; J3490; J7120; J2001

== ENCOUNTER → 2017-09-28 | Outpatient (CLI) | payer OTHER ==
[~2017-09-28] MED LIST changes: +DOCU-109 PO; +IBUP-1060 PO; +OXYC-323 PO; -SURGICEL HEMOSTAT 2X3 EACH. ONE; -ceFAZolin SODIUM 3 GM in IV DEXTROSE 5% 100 ML IV PRN
--- NOTE | 2017-10-02 13:59 | RAD ---
DATE: 09/28/2017 EXAM: DIGITAL SCREEN BILAT W/CAD HISTORY: Routine screening COMPARISON: 09/02/2016 This study was interpreted with the benefit of Computerized Aided Detection (CAD). The breast parenchyma is heterogeneously dense, which could reduce sensitivity of mammography. Breast parenchyma level C. FINDINGS: There are multiple lymph node type densities in the axillae and the axillary tail region of the left breast which appear unchanged. No new or enlarging breast densities are seen. Benign type calcifications are present. No suspicious microcalcifications have developed. IMPRESSION: Stable mammograms without evidence of malignancy. BI-RADS CATEGORY: 2 BENIGN FINDING(S) RECOMMENDED FOLLOW-UP: 12M 12 MONTH FOLLOW-UP PQRS compliance statement: Patient information was entered into a reminder system with a target due date for the next mammogram. Mammography is a sensitive method for finding small breast cancers, but it does not detect them all and is not a substitute for careful clinical examination. A negative mammogram does not negate a clinically suspicious finding and should not result in delay in biopsying a clinically suspicious abnormality. "Our facility is accredited by the [employer] Mammography Program."
== END | disposition home or self-care (01) ==
LOC: MAMMO 12:53
PROVIDERS: ATTEND Nurse Practitioner Family
DX: R92.2 Inconclusive mammogram (principal)
CPT/HCPCS: 77067

== ENCOUNTER 2017-11-27 11:24 | Emergency (ER) | payer OTHER ==
[~2017-11-27] VITALS: Ht 157.5 cm; Wt 97.5 kg
[2017-11-27 11:48] VITALS: BP 167/81
--- NOTE | 2017-11-27 12:26 | RAD ---
Examination: Left Lower Extremity Venous Doppler Ultrasound History: Left leg pain Comparison: None Procedure: Ferraro scale, color flow 2D and spectal waveform analysis images are obtained with and without compression in the area of the common femoral vein, superficial femoral vein - femoral vein junction, main femoral vein (superficial femoral vein) and popliteal vein. Veins of the proximal calf are also imaged. Findings: There is normal duplex flow, color flow and compressibility of all visualized vein segments. No evidence of deep venous thrombus is present. Impression: No evidence of DVT in the visualized left lower extremity venous system. Electronically signed by: Cade Hutchins MD (11/27/2017 12:23 PM) [id number]
--- NOTE | 2017-11-27 13:08 | PHYS DOC ---
Past Medical History Past Medical History: Hypertension Past Surgical History: , Other Additional Past Surgical Histo: neck, left lumpectomy Alcohol Use: Rarely Drug Use: None Adult General Chief Complaint Chief Complaint: LOWER EXT PAIN HPI HPI Patient is a 51 year old female who presents with left leg pain. The patient states that she has generalized pain to the left leg. She states that it occurred after she walked a long distance to her mother's house. She denies any clotting disorders or recent travel. She denies chest pain or shortness of breath. Review of Systems Review of Systems Constitutional: Denies fever or chills [] Respiratory: Denies cough or shortness of breath [] Cardiovascular: No additional information not addressed in HPI [] GI: Denies abdominal pain, nausea, vomiting, bloody stools or diarrhea [] : Denies dysuria or hematuria [] Musculoskeletal: See history of present illness Integument: Denies rash or skin lesions [] Neurologic: Denies headache, focal weakness or sensory changes [] Endocrine: Denies polyuria or polydipsia [] All other systems were reviewed and found to be within normal limits, except as documented in this note. Allergies Allergies Allergies Coded Allergies Type Severity Reaction Last Updated Verified No Known Medication Allergies Allergy Unknown 11/30/16 Yes codeine Adverse Reaction Intermediate Nausea and Vomiting 12/01/16 Yes Physical Exam Physical Exam Constitutional: Well developed, well nourished, no acute distress, non-toxic appearance. [] Cardiovascular:Heart rate regular rhythm, no murmur [] Lungs & Thorax: Bilateral breath sounds clear to auscultation [] Abdomen: Bowel sounds normal, soft, no tenderness, no masses, no pulsatile masses. [] Skin: Warm, dry, no erythema, no rash. [] Back: No tenderness, no CVA tenderness. [] Extremities: Generalized left leg tenderness, no cyanosis, no clubbing, ROM intact, no edema, Chioma sign is positive. [] Neurologic: Alert and oriented X 3, normal motor function, normal sensory function, no focal deficits noted. [] Psychologic: Affect normal, judgement normal, mood normal. [] Current Patient Data Vital Signs Vital Signs Date Time Temp Pulse Resp B/P (MAP) Pulse Ox O2 Delivery O2 Flow Rate FiO2 11/27/17 11:48 98.1 64 18 167/81 (109) 98 Room Air 98.1 EKG EKG [] Radiology/Procedures Radiology/Procedures []PATIENT: ANAHI IGLESIAS LACCOUNT: [id number]#: [id number] : 1965 LOCATION: ER AGE: 51 SEX: F EXAM STATUS: REG ER ORD. PHYSICIAN: EMBER DELCID APRN REASON: unilateral leg pain PROCEDURE: VENOUS LOWER EXTREMITY LEFT Examination: Left Lower Extremity Venous Doppler Ultrasound History: Left leg pain Comparison: None Procedure: Ferraro scale, color flow 2D and spectal waveform analysis images are obtained with and without compression in the area of the common femoral vein, superficial femoral vein - femoral vein junction, main femoral vein (superficial femoral vein) and popliteal vein. Veins of the proximal calf are also imaged. Findings: There is normal duplex flow, color flow and compressibility of all visualized vein segments. No evidence of deep venous thrombus is present. Impression: No evidence of DVT in the visualized left lower extremity venous system. Electronically signed by: Cade Hutchins MD (11/27/2017 12:23 PM) [id number] DICTATED and SIGNED BY: CADE HUTCHINS MD DATE: 11/27/17 1222 Course & Med Decision Making Course & Med Decision Making Pertinent Labs and Imaging studies reviewed. (See chart for details) [] Staff Physician Addendum: I was working in the ER during the course of this patient's visit. I was available for consultation as needed, but I was not directly involved in the care of this patient. Dragon Disclaimer Dragon Disclaimer This electronic medical record was generated, in whole or in part, using a voice recognition dictation system. Departure Departure Impression: Primary Impression: Left leg pain Disposition: HOME, SELF-CARE Condition: STABLE Referrals: JELANI SCHROEDER (PCP) Patient Instructions: Leg Cramps Additional Instructions: You may take ibuprofen or Tylenol for your pain. Follow-up with your primary care provider in one week if not improving or return to the emergency department if worsening. EMBER DELCID APRN Nov 27, 2017 13:08 MAYA JORDAN MD Nov 28, 2017 06:13
== END 2017-11-27 13:11 | disposition home or self-care (01) ==
LOC: ER 11:24
DX: M79.605 Pain in left leg (principal); I10 Essential (primary) hypertension; Z88.5 Allergy status to narcotic agent
CPT/HCPCS: 93971; 99284

== ENCOUNTER → 2019-10-09 | Outpatient (CLI) | payer MEDICAID ==
[~2019-10-09] MED LIST changes: -OXYC-323 PO; +OXYC1TAB15 PO
--- NOTE | 2019-10-10 17:42 | RAD ---
DATE: 10/09/2019 12:00 PM EXAM: DIGITAL SCREEN BILAT W/CAD HISTORY: Screening COMPARISON: 09/28/2017 Bilateral full field craniocaudal and mediolateral oblique images were obtained using digital technique. This study was interpreted with the benefit of Computerized Aided Detection (CAD). FINDINGS: Breast Density: HETERO The breast parenchyma Is heterogeneously dense, which could reduce sensitivity of mammography. Breast parenchyma level C No suspicious masses, microcalcifications or architectural distortion is present to suggest malignancy in either breast. The visualized axillae are unremarkable. IMPRESSION: No mammographic evidence of malignancy. BI-RADS CATEGORY: 1 NEGATIVE RECOMMENDED FOLLOW-UP: 12M 12 MONTH FOLLOW-UP Annual screening mammography is recommended, unless clinically indicated sooner based on symptoms or change in physical exam. PQRS compliance statement: Patient information was entered into a reminder system with a target due date for the next mammogram. Mammography is a sensitive method for finding small breast cancers, but it does not detect them all and is not a substitute for careful clinical examination. A negative mammogram does not negate a clinically suspicious finding and should not result in delay in biopsying a clinically suspicious abnormality. "Our facility is accredited by the [employer] Mammography Program."
== END | disposition home or self-care (01) ==
LOC: MAMMO 11:52
PROVIDERS: ATTEND Nurse Practitioner Family
DX: Z12.31 Encounter for screening mammogram for malignant neoplasm of breast (principal)
CPT/HCPCS: 77067

== ENCOUNTER 2019-10-15 10:34 | Emergency (ER) | payer MEDICAID ==
[~2019-10-15] VITALS: Ht 157.5 cm; Wt 96.0 kg
[2019-10-15 11:18] VITALS: BP 152/89
--- NOTE | 2019-10-15 11:24 | PHYS DOC ---
Past Medical History Past Medical History: Hypertension Past Surgical History: , Other Additional Past Surgical Histo: neck, left lumpectomy Smoking Status: Current Every Day Smoker Alcohol Use: Rarely Drug Use: None General Adult EDM: Chief Complaint: FOREIGNBODY EAR HPI: HPI: Patient is a 53 year old AA female who presents to the emergency department with chief complaint of a Q-tip being stuck in her right ear. Patient states she got out of the shower this morning and was using a Q-tip to clean her ear when the tip of the Q-tip became lodged in the right ear. She denies any bleeding or abnormal drainage from the ear. She denies any ringing in her ear or decreased hearing. The patient also denies any fever, dizziness, or complaints of pain. Review of Systems: Review of Systems: Constitutional: Denies fever or chills. [] HENT: See HPI Neurologic: Denies headache, or dizziness Psychiatric: Denies depression or anxiety. [] Heart Score: Risk Factors: Risk Factors: DM, Current or recent (<one month) smoker, HTN, HLP, family history of CAD, obesity. Risk Scores: Score 0 - 3: 2.5% MACE over next 6 weeks - Discharge Home Score 4 - 6: 20.3% MACE over next 6 weeks - Admit for Clinical Observation Score 7 - 10: 72.7% MACE over next 6 weeks - Early Invasive Strategies Allergies: Allergies: Allergies Coded Allergies Type Severity Reaction Last Updated Verified No Known Medication Allergies Allergy Unknown 11/30/16 Yes codeine Adverse Reaction Intermediate Nausea and Vomiting 12/01/16 Yes Physical Exam: PE: Constitutional: Well developed, well nourished, no acute distress, non-toxic appearance. [] HENT: Normocephalic, atraumatic, bilateral external ears normal, nose normal; there is a piece of white cotton present in the right ear canal, no bleeding, no erythema, no drainage. [] Eyes: PERRLA, EOMI, conjunctiva normal, no discharge. [] Neck: Normal range of motion, no stridor. [] Cardiovascular:Heart rate regular rhythm Lungs & Thorax: Respirations even and unlabored, no retractions, no respiratory distress Skin: Warm, dry, no erythema, no rash. [] Extremities: No cyanosis, ROM intact, no edema. [] Neurologic: Alert and oriented X 3, no focal deficits noted. [] Psychologic: Affect normal, judgement normal, mood normal. [] EKG: EKG: [] Radiology/Procedures: Radiology/Procedures: Using the bionix penlight a large piece of cotton was removed from the right ear, there was no bleeding, or discharge present in the ear canal, the TM appears normal after the cotton was removed. [] Course & Med Decision Making: Course & Med Decision Making Pertinent Labs and Imaging studies reviewed. (See chart for details) [] Dragon Disclaimer: Dragon Disclaimer: This electronic medical record was generated, in whole or in part, using a voice recognition dictation system. Departure Departure Impression: Primary Impression: Foreign body in right ear, initial encounter Disposition: 01 HOME, SELF-CARE Condition: STABLE Referrals: JELANI ALLRED (PCP) Patient Instructions: Ear Foreign Body, [id number] Additional Instructions: Discontinue use of Q-tips. Follow up with your doctor as needed, return to the ER if symptoms worsen. Justicifation of Admission Dx: Justifications for Admission: Justification of Admission Dx: N/A NAYELI PATINO EMERGENCY VEHICLE DISPATCHER Oct 15, 2019 11:24
== END 2019-10-15 11:36 | disposition home or self-care (01) ==
LOC: ER 10:34
DX: T16.1XXA Foreign body in right ear, initial encounter (principal); I10 Essential (primary) hypertension; F17.200 Nicotine dependence, unspecified, uncomplicated; Z88.5 Allergy status to narcotic agent; X58.XXXA Exposure to other specified factors, initial encounter; Y93.89 Activity, other specified; Y92.89 Other specified places as the place of occurrence of the external cause; Y99.8 Other external cause status
CPT/HCPCS: 99284

== ENCOUNTER 2020-11-15 18:12 | Emergency (ER) | payer MEDICAID ==
[~2020-11-15] VITALS: Ht 157.5 cm; Wt 97.0 kg
[~2020-11-15 18:12] MED LIST changes: -CLIN150C14 PO; +CLIN150C16 PO
[2020-11-15] MEDS ORDERED: ONDANSETRON PF 4 MG/2 ML VIAL. IVP ONE (18:45)
[2020-11-15] MEDS ORDERED: LABETALOL 20 MG/4 ML DISP.SYRIN. IVP ONE (18:45)
[2020-11-15] MEDS ORDERED: fentaNYL PF VIAL 100 MCG/2 ML VIAL IVP ONE (18:45)
[2020-11-15 18:55] LABS: BILIRUBIN,URINE NEGATIVE (NEG); CLARITY,URINE CLEAR; COLOR,URINE YELLOW; NITRITE,URINE NEGATIVE (NEG); PROTEIN,URINE NEGATIVE (NEG-TRACE); UROBILINOGEN,URINE 0.2 mg/dL (0.2 mg/dL)
--- NOTE | 2020-11-15 18:59 | PHYS DOC ---
Past Medical History Past Medical History: Hypertension Additional Past Medical Histor: NON COMPLAINT Past Surgical History: , Hysterectomy, Other Additional Past Surgical Histo: neck, left lumpectomy Smoking Status: Current Every Day Smoker Alcohol Use: Rarely Drug Use: None General Adult EDM: Chief Complaint: ABDOMINAL PAIN HPI: HPI: Patient is a 54 year old female with history of hypertension who presents to the ED today complaining of 5 out of 10 " hunger" type epigastric abdominal pain, symptoms have been going on for 3 days. Patient states she has had similar symptoms 2 months ago and was evaluated, she states her work-up was negative for any acute findings. Denies anything specifically exacerbating or relieving her symptoms. Review of Systems: Review of Systems: Constitutional: Denies fever or chills. [] Eyes: Denies change in visual acuity. [] HENT: Denies nasal congestion or sore throat. [] Respiratory: Denies cough or shortness of breath. [] Cardiovascular: Denies chest pain or edema. [] GI: Reports epigastric abdominal pain, denies nausea, vomiting, bloody stools or diarrhea. [] : Denies dysuria. [] Musculoskeletal: Denies back pain or joint pain. [] Integument: Denies rash. [] Neurologic: Denies headache, focal weakness or sensory changes. [] Psychiatric: Denies depression or anxiety. [] Heart Score: C/O Chest Pain: N/A Risk Factors: Risk Factors: DM, Current or recent (<one month) smoker, HTN, HLP, family history of CAD, obesity. Risk Scores: Score 0 - 3: 2.5% MACE over next 6 weeks - Discharge Home Score 4 - 6: 20.3% MACE over next 6 weeks - Admit for Clinical Observation Score 7 - 10: 72.7% MACE over next 6 weeks - Early Invasive Strategies Current Medications: Current Medications Medications (Trade) Dose Ordered Sig/Cory Start Time Stop Time Status Last Admin Dose Admin Fentanyl Citrate (Fentanyl 2ml Vial) 50 mcg 1X ONCE 11/15/20 18:45 11/15/20 18:46 DC Labetalol HCl (Normodyne Iv Push) 10 mg 1X ONCE 11/15/20 18:45 11/15/20 18:46 DC Ondansetron HCl (Zofran) 4 mg 1X ONCE 11/15/20 18:45 11/15/20 18:46 DC Allergies: Allergies: Allergies Coded Allergies Type Severity Reaction Last Updated Verified No Known Medication Allergies Allergy Unknown 11/30/16 Yes acetaminophen Allergy Unknown Hives 11/15/20 No codeine Adverse Reaction Intermediate Nausea and Vomiting 12/01/16 Yes Physical Exam: PE: Constitutional: Well developed, well nourished, no acute distress, non-toxic appearance. [] HENT: Normocephalic, atraumatic, bilateral external ears normal, oropharynx moist, no oral exudates, nose normal. [] Eyes: PERRLA, EOMI, conjunctiva normal, no discharge. [] Neck: Normal range of motion, no tenderness, supple, no stridor. [] Cardiovascular:Heart rate regular rhythm, no murmur [] Lungs & Thorax: Bilateral breath sounds clear to auscultation [] Abdomen: Rounded abdomen. Bowel sounds normal, soft, mild epigastric t enderness, no right upper quadrant or right lower quadrant tenderness, no masses, no pulsatile masses. [] Skin: Warm, dry, no erythema, no rash. [] Back: No tenderness, no CVA tenderness. [] Extremities: No tenderness, no cyanosis, no clubbing, ROM intact, no edema. [] Neurologic: Alert and oriented X 3, normal motor function, normal sensory function, no focal deficits noted. [] Psychologic: Affect normal, judgement normal, mood normal. [] Current Patient Data: Vital Signs: Vital Signs Date Time Temp Pulse Resp B/P (MAP) Pulse Ox O2 Delivery O2 Flow Rate FiO2 11/15/20 18:40 98.9 72 18 193/110 (137) 99 98.9 EKG: EKG: [] Radiology/Procedures: Radiology/Procedures: []PROCEDURE: CT ABD PELV W/ IV CONTRST ONLY EXAMINATION: CT abdomen and pelvis with IV contrast. INDICATION:54 years, Female, abdominal pain. TECHNIQUE: Axial CT images of the abdomen and pelvis were obtained. Coronal and sagittal reformatted performed. COMPARISON: None. Exposure: One or more of the following individualized dose reduction techniques were utilized for this examination: 1. Automated exposure control 2. Adjustment of the mA and/or kV according to patient size 3. Use of iterative reconstruction technique. FINDINGS: LOWER CHEST: Unremarkable. ABDOMEN/PELVIS: Liver, gallbladder, biliary ducts, spleen, pancreas, adrenals and kidneys are normal. No bowel obstruction or wall thickening. Appendix is normal. Normal caliber abdominal aorta. Mesenteric arteries and portal vein are patent. No pneumoperitoneum or ascites. No lymphadenopathy in the abdomen or pelvis by size criteria. Unremarkable urinary bladder. Hysterectomy. No suspicious pelvic masses. MUSCULOSKELETAL: No acute osseous process. IMPRESSION: No acute abnormality in the abdomen or pelvis. Electronically signed by: Melani Dow MD (11/15/2020 9:29 PM) [facility] DICTATED and SIGNED BY: MELANI DOW MD DATE: 11/15/20 [id number] 0 Course & Med Decision Making: Course & Med Decision Making Pertinent Labs and Imaging studies reviewed. (See chart for details) This is a 54-year-old female patient presenting to the ED today with epigastric abdominal pain for 3 days. Has had similar pain 2 months ago with a negative work-up. Blood pressure 193/110 with a heart rate of 72, history of hypertension and has not taken her blood pressure medicines for a long time CBC CMP lipase with no acute findings, UA negative for infection, UDS positive for alcohol. Alcohol level less than 10. CT of the abdomen and pelvic is negative. Patient was discharged to home. Follow-up with PCP. I could not write her blood pressure medicine because she was not sure if she is taking hydralazine or hydrochlorothiazide. I requested her to contact the PCP tomorrow and get the right medicine prescribed to her. Juan Disclaimer: Juan Disclaimer: This electronic medical record was generated, in whole or in part, using a voice recognition dictation system. Departure Departure Impression: Primary Impression: Alcohol use Additional Impressions: Abdominal pain Qualified Codes: R10.13 - Epigastric pain HTN (hypertension) Qualified Codes: I10 - Essential (primary) hypertension Disposition: HOME / SELF CARE / HOMELESS Condition: STABLE Referrals: JELANI ALLRED (PCP) call her office tomorrow and set up a follow up appointment. Patient Instructions: Abdominal Pain (Nonspecific), Hypertension Additional Instructions: You were evaluated in the emergency room for abdominal pain. Your work-up in the ER was negative for any acute findings including labs and CT of the abdomen and pelvis. We encourage you to contact your primary care doctor tomorrow morning and ask for refill of your blood pressure medicine. GRACE HAINES APRN Nov 15, 2020 18:59
[2020-11-15 19:02] LABS: BARBITURATES NEG (NEG); BENZODIAZEPINES NEG (NEG); CANNABINOIDS NEG (NEG); COCAINE NEG (NEG); METHADONE NEG (NEG); OPIATES NEG (NEG); PHENCYCLIDINE NEG (NEG)
[2020-11-15 19:04] LABS: AMPHETAMINE/METHAMPHETAMINE NEG (NEG)
[2020-11-15 19:05] LABS: BACTERIA,URINE FEW /HPF (0-FEW); WBC,URINE OCC /HPF (0-4)
[2020-11-15 20:01] LABS: BASO # 0.1 x10^3/uL (0.0-0.2); BASO % 1 % (0-3); EOS # 0.3 x10^3/uL (0.0-0.7); EOS % 3 % (0-3); HEMATOCRIT 38.6 % (36.0-47.0); HEMOGLOBIN 13.2 g/dL (12.0-15.5); LYMPH # 3.4 x10^3/uL (1.0-4.8); LYMPH % 38 % (24-48); MEAN CORPUSCULAR HEMOGLOBIN 32 pg (25-35); MEAN CORPUSCULAR HGB CONC 34 g/dL (31-37); MEAN CORPUSCULAR VOLUME 92 fL (79-100); MONO # 0.6 x10^3/uL (0.0-1.1); MONO % 6 % (0-9); NEUT # 4.7 x10^3/uL (1.8-7.7); NEUT % 52 % (31-73); PLATELET COUNT 313 x10^3/uL (140-400); RED BLOOD COUNT 4.18 x10^6/uL (3.50-5.40); RED CELL DISTRIBUTION WIDTH 13.9 % (11.5-14.5)
[2020-11-15 20:06] LABS: CREATININE 0.8 mg/dL (0.6-1.0); GFR 91.1; POTASSIUM 3.5 mmol/L (3.5-5.1)
[2020-11-15 20:12] LABS: ALBUMIN 4.1 g/dL (3.4-5.0); ALBUMIN/GLOBULIN RATIO 1.1 (1.0-1.7); TOTAL BILIRUBIN 0.3 mg/dL (0.2-1.0); TOTAL PROTEIN 7.8 g/dL (6.4-8.2)
[2020-11-15] MEDS ORDERED: IOHEXOL 300 MG/ML 100ML VIAL. IV ONE (20:15)
--- NOTE | 2020-11-15 21:32 | RAD ---
EXAMINATION: CT abdomen and pelvis with IV contrast. INDICATION:54 years, Female, abdominal pain. TECHNIQUE: Axial CT images of the abdomen and pelvis were obtained. Coronal and sagittal reformatted performed. COMPARISON: None. Exposure: One or more of the following individualized dose reduction techniques were utilized for thi s examination: 1. Automated exposure control 2. Adjustment of the mA and/or kV according to patient size 3. Use of iterative reconstruction technique. FINDINGS: LOWER CHEST: Unremarkable. ABDOMEN/PELVIS: Liver, gallbladder, biliary ducts, spleen, pancreas, adrenals and kidneys are normal. No bowel obstru ction or wall thickening. Appendix is normal. Normal caliber abdominal aorta. Mesenteric arteries and portal vein are patent. No pneumoperitoneum or ascites. No lymphadenopathy in the abdomen or pelvis by size criteria. Unremarkable urinary bladder. Hysterectomy. No suspicious pelvic masses. MUSCULOSKELETAL: No acute osseous process. IMPRESSION: No acute abnormality in the abdomen or pelvis. Electronically signed by: Karri Dow MD (11/15/2020 9:29 PM) [facility]
[2020-11-15 22:53] VITALS: BP 153/73
== END 2020-11-15 23:00 | disposition home or self-care (01) ==
LOC: ER 18:12
DX: R10.13 Epigastric pain (principal); I10 Essential (primary) hypertension; F17.200 Nicotine dependence, unspecified, uncomplicated; Z90.710 Acquired absence of both cervix and uterus; Z88.5 Allergy status to narcotic agent; Z88.6 Allergy status to analgesic agent; Z72.89 Other problems related to lifestyle
CPT/HCPCS: 36415; 74177; 80053; 80307; 81001; 83690; 85025; 96374; 96375; 99285; G0480; J2405; J3010; J3490; Q9967